=== PATIENT | male | born 1990 | race American Indian/Alaskan Native ===

== ENCOUNTER 2021-04-05 14:51 | Emergency (ER) | payer SELFPAY ==
[2021-04-05 15:38] VITALS: BP 117/76
--- NOTE | 2021-04-05 16:07 | Emergency Department Report ---
ED Neck Pain/Injury HPI - General Chief Complaint: Neck Pain/Injury Stated Complaint: NECK PAINS Time Seen by Provider: 04/05/21 15:55 Source: patient Mode of arrival: Ambulatory Limitations: No Limitations - History of Present Illness Initial Comments: Patient is a 31-year-old male presents emergency room complaints of right-sided neck pain that radiates to his right shoulder that began a week ago. 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 He denies any fall or injury. He denies any fever, neck stiffness, vision changes, headache, numbness, weakness. No past medical history. No allergies to medications. - Related Data Previous Rx's Medication Instructions Recorded Last Taken Type Menthol/Camphor [[place] 1 applicatio TP BID #18 oint...g. 04/05/21 Unknown Rx Ointment] Naproxen [EC-Naprosyn] 500 mg PO BID PRN #20 tablet. 04/05/21 Unknown Rx methOCARBAMOL [Robaxin TAB] 500 mg PO BID PRN #14 tab 04/05/21 Unknown Rx Allergies Allergy/AdvReac Type Severity Reaction Status Date / Time No Known Allergies Allergy Unverified 04/05/21 15:38 ED Review of Systems ROS: Stated complaint: NECK PAINS Other details as noted in HPI Comment: All other systems reviewed and negative ED Past Medical Hx - Past Medical History Previous Medical History?: No - Surgical History Past Surgical History?: No - Social History Smoking Status: Current Some Day Smoker Substance Use Type: None - Medications Home Medications: Home Medications Medication Instructions Recorded Confirmed Last Taken Type Menthol/Camphor [[place] 1 applicatio TP BID #18 oint...g. 04/05/21 Unknown Rx Ointment] Naproxen [EC-Naprosyn] 500 mg PO BID PRN #20 tablet. 04/05/21 Unknown Rx methOCARBAMOL [Robaxin TAB] 500 mg PO BID PRN #14 tab 04/05/21 Unknown Rx ED Physical Exam - General Limitations: No Limitations General appearance: alert, in no apparent distress - Head Head exam: Present: atraumatic, normocephalic - Eye Eye exam: Present: normal appearance - ENT ENT exam: Present: mucous membranes moist - Neck Neck exam: Present: normal inspection, tenderness (right sided C-spine paraspinal muscular ttp, no midline C-spine ttp, no step offs, no deformities ), full ROM. Absent: meningismus - Respiratory Respiratory exam: Present: normal lung sounds bilaterally. Absent: respiratory distress, wheezes, rales, rhonchi, stridor, chest wall tenderness, accessory muscle use, decreased breath sounds, prolonged expiratory - Cardiovascular Cardiovascular Exam: Present: regular rate, normal rhythm, normal heart sounds. Absent: systolic murmur, diastolic murmur, rubs, gallop - Extremities Exam Extremities exam: Present: other (right sided trapzeius ttp, no bony ttp of the BUE, FROM of the BUE, no deformity, no sulcus sign, clavicles are equal, no clavicular ttp, neurovascularly intact, no edema, no skin changes) - Back Exam Back exam: Present: normal inspection, full ROM. Absent: paraspinal tenderness, vertebral tenderness - Neurological Exam Neurological exam: Present: alert, oriented X3 - Psychiatric Psychiatric exam: Present: normal affect, normal mood - Skin Skin exam: Present: warm, dry, intact ED Course Vital Signs 04/05/21 15:37 Temperature 98.4 F Pulse Rate 69 Respiratory 16 Rate Blood Pressure 117/76 O2 Sat by Pulse 99 Oximetry ED Medical Decision Making - Medical Decision Making Patient is a 31-year-old male presents emergency room complaints of right-sided neck pain that radiates to his right shoulder that began a week ago. 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 He denies any fall or injury. He denies any fever, neck stiffness, vision changes, headache, numbness, weakness. No past medical history. No allergies to medications. Vitals are normal. On exam:right sided C-spine paraspinal muscular ttp, no midline C-spine ttp, no step offs, no deformities, right sided trapzeius ttp, no bony ttp of the BUE, FROM of the BUE, no deformity, no sulcus sign, clavicles are equal, no clavicular ttp, neurovascularly intact, no edema, no skin changes, no focal neuro deficits. Examination appears most consistent with muscle strain versus cervical radiculopathy. Patient has had no acute trauma, he has no meningeal signs, no midline tenderness, no focal neuro deficits. Patient given prescription for medications. Patient be referred to primary care doctor and orthopedic. Advised patient Please use medication as prescribed. Do not drive or operate heavy machinery while taking muscle relaxer Robaxin. May use heating pad 15 minutes at a time, rest, Epsom salt bath. do not use tiger balm while using heating pad. Follow-up with a primary care doctor. Follow-up with orthopedic doctor. Return to emergency room for any new or worsening symptoms. Critical care attestation.: If time is entered above; I have spent that time in minutes in the direct care of this critically ill patient, excluding procedure time. ED Disposition Clinical Impression: Neck pain Right shoulder pain Qualifiers: Chronicity: acute Qualified Code(s): M25.511 - Pain in right shoulder Disposition: DC-01 TO HOME OR SELFCARE Is pt being admited?: No Does the pt Need Aspirin: No Condition: Stable Instructions: Muscle Strain, [id number] Additional Instructions: Please use medication as prescribed. Do not drive or operate heavy machinery while taking muscle relaxer Robaxin. May use heating pad 15 minutes at a time, rest, Epsom salt bath. do not use tiger balm while using heating pad. Follow-up with a primary care doctor. Follow-up with orthopedic doctor. Return to emergency room for any new or worsening symptoms. Prescriptions: Naproxen [EC-Naprosyn] 500 mg PO BID PRN #20 tablet.dr PRN Reason: pain methOCARBAMOL [Robaxin TAB] 500 mg PO BID PRN #14 tab PRN Reason: muscle spasm/pain Menthol/Camphor [[place] Ointment] 1 applicatio TP BID #18 oint...g. Referrals: SHAD IVERSON MD [Staff Physician] - 3-5 Days [facility] [Provider Group] - 3-5 Days YEYO PEÑA MD [Staff Physician] - 3-5 Days [facility] [Provider Group] - 3-5 Days Forms: Work/School Release Form(ED) Time of Disposition: 16:03 Print Language: KAZAKH
== END 2021-04-05 16:45 | disposition home or self-care (01) ==
LOC: ED 14:51
DX: M54.2 Cervicalgia (principal); M25.511 Pain in right shoulder; F17.200 Nicotine dependence, unspecified, uncomplicated; Z79.899 Other long term (current) drug therapy
CPT/HCPCS: 99282